=== PATIENT | female | born 1960 | race Caucasian/White ===

== ENCOUNTER → 2025-02-03 11:01 | Outpatient (REF) | payer MEDICARE, OTHER, SELFPAY | LOC: HWRAD 11:01 | PROVIDERS: ATTENDING PHYSICIAN Family Medicine | DX: M25.50 Pain in unspecified joint (principal) | CPT/HCPCS: 73140 ==

== ENCOUNTER 2025-05-10 13:02 | Emergency (ER) | payer MEDICARE, OTHER, SELFPAY ==
[2025-05-10 13:03] VITALS: BMI 37.3
[2025-05-10 13:05] VITALS: BP 139/85
--- NOTE | 2025-05-10 14:24 | ED.GENMED ---
History of Present Illness
General
Chief Complaint: Abdominal Symptoms
Source: patient and spouse
Exam Limitations: none
Time Seen by Provider: 05/10/25 14:12
Nursing documentation reviewed up to this point in time: agreed with
History of Present Illness
History of Present Illness:
Note:
CHIEF COMPLAINT(S)
Abdominal pain
HISTORY OF PRESENT ILLNESS
The patient is a 64-year-old female presenting with a chief complaint of abdominal pain localized to RUQ without radiating to the shoulder or groin. She mentioned that the pain varies daily. A few days ago, she initially thought the discomfort was
due to constipation and refrained from eating as a result. She reported waking up with sweating episodes, indicating possible fever, though she was unsure. She experienced heightened pain yesterday, resulting in significant discomfort and difficulty
sleeping. The patient stated, 'Theres been so much pain,' prompting her to take hydrocodone left over from a prior knee replacement, which provided some relief. She is experiencing significant nausea but has not vomited.
The patient disclosed a history of gallstones confirmed by a computed tomography (CT) scan a few years ago. At the time, the scan was performed due to a fall that resulted in back pain, during which gallstones were identified. She described feeling
a palpable 'hard block' in the abdominal region but denied any dysuria or hematuria.
PAST MEDICAL AND SURIGICAL HISTORY
The patient has a history of gallstones. Past surgical history includes a knee replacement, section, and hysterectomy.
PLAN
1. Order laboratory tests, including liver function tests, complete blood count, and kidney function tests.
2. Obtain a urine sample for analysis.
3. Perform an abdominal ultrasound to evaluate the gallbladder; consider a CT scan if the ultrasound findings are inconclusive.
4. Administer intravenous fluids due to limited oral intake.
5. Provide ondansetron (Zofran) intravenously for nausea management.
6. Monitor pain and symptom progression.
DIFFERENTIAL DIAGNOSIS
The Differential Diagnosis includes, in no particular order and is not limited to:
1. Cholecystitis
2. Biliary colic
3. Acute gastroenteritis
4. Peptic ulcer disease
5. Pancreatitis
6. Constipation
7. Urinary tract infection
8. Diverticulitis
9. Small bowel obstruction
10. Hepatic abscess
CARE-UPDATE
05/10/25 - 20:[address] pelvis confirm the presence of gallstones without indications of polypsisitis or other abdominal abnormalities. Laboratory results indicate mild leukocytosis with normal lipase and liver function tests. The patient is stable and
approved for discharge with instructions to follow up with general surgery. Discharge precautions have been provided.
Disposition:
SUMMARY OF ENCOUNTER
The patient, a 64-year-old female, presented with right upper quadrant abdominal pain and nausea. The pain varied daily and was accompanied by sweating episodes, suggesting fever. The patient has a history of gallstones confirmed by imaging in the
past. In the emergency department, laboratory tests showed mild leukocytosis but normal lipase and liver function tests. Imaging confirmed gallstones with no other abdominal abnormalities. Intravenous fluids and ondansetron (Zofran) were provided
for nausea and hydration.
DISPOSITION
Discharge.
ASSESSMENT
The patients symptoms and imaging studies are consistent with biliary colic, as suggested by the presentation of gallstones without acute inflammatory changes.
EMERGENCY TREATMENTS ADMINISTERED
Ondansetron (Zofran) was administered intravenously for nausea. Intravenous fluids were also provided due to limited oral intake.
PLAN
The patient is advised to follow up with general surgery for further evaluation and management of gallstones. Discharge precautions include instructions to return to the emergency department if symptoms worsen or new symptoms develop.
INDEPENDENT REVIEW OF LABS AND INTERPRETATION OF TESTS
My independent review of CBC indicates mild leukocytosis. My independent interpretation of the abdominal ultrasound and CT pelvis confirms the presence of gallstones with no other acute abdominal abnormalities.
PATIENT EDUCATION AND COUNSELING
The patient was educated regarding the diagnosis of biliary colic and the importance of follow-up with general surgery. Return precautions were discussed, advising the patient to return to the emergency department if symptoms worsen.
FOLLOW-UP INSTRUCTIONS
The patient is instructed to follow up with general surgery for further evaluation.
MEDICATION RECONCILIATION
Ondansetron (Zofran) was administered intravenously in the emergency department.
MEDICAL DECISION MAKING
-Number and Complexity of Problems Addressed:
Chronic conditions affecting care include a history of gallstones.
Data:
Category 1
Laboratory tests ordered included liver function tests, complete blood count, and kidney function tests. Imaging studies included an abdominal ultrasound and CT pelvis.
Category 3
Discussion regarding the management plan involved follow-up with general surgery for potential surgical intervention for gallstones.
-Risk:
Consideration of Admission/Observation: Escalation of care including admission/observation was considered given the complexity and risk of the patients presenting complaint, exam findings, and/or their underlying comorbidities. However, ultimately,
I feel the patient is safe for outpatient management with close follow-up. Reasoning: Work-up reassuring, does not reveal any acute life/organ-threatening processes, patients symptoms well controlled upon reevaluation, reexamination is reassuring,
vitals are stable, patient agreeable with discharge, reliable for follow-up.
DIAGNOSIS
Biliary colic (ICD-10 K80.00)
Past History
Past History
ED Past Medical History: HTN
Social History
Tobacco: Non-smoker
Alcohol: None
Drug: None
Personal:
Living: with family
Phy Exam
Physical Exam
Physical Exam:
Physical Exam
General: no apparent distress, not acutely ill
Neck: supple. no meningeal signs. normal posterior pharynx
Heart: s1/s2 regular rate and rhythm, no murmur. equal radial
pulses.
HEENT: Pupils equal round reactive to light, EOMI
Lungs: no acute respiratory distress. clear bilaterally
Abdomen: normal bowel sounds. Right upper quadrant tenderness. No CVAT
Neuro: alert and oriented. no focal neurological deficits cranial nerves II through XII intact
Skin: no rash
Psychiatric: well kept. interactive and cooperative
Extremities: no edema. no calf tenderness. negative homans. good distal pulses
Course
Orders/Labs/Results
Orders:
Orders
05/10/25 14:13
IV Insert/Care/Rem.- Treatment PRN
05/10/25 14:24
US Abdomen Complete/Upper Urgent
Comment:
Reason For Exam: epigastric/RUQ pain 2 days
05/10/25 14:33
Complete Blood Count/With Diff Urgent
Comprehensive Metabolic Panel Urgent
Lipase Urgent
Urinalysis Reflex To Culture Urgent
Date Specimen was Collected: 05/10/25
Time Specimen was Collected: 14:28
Urine Microscopic Reflex Cult Urgent
Urine Culture Urgent
MIKO Source: U
Specimen Description:
Date Specimen was Collected: 05/10/25
Time Specimen was Collected: 14:28
05/10/25 16:05
CT Abd/pelvis W Iv Cont Urgent
Comment:
Reason For Exam: right side abd pain 2 days
05/10/25 18:47
0.9% Sodium Chloride 1000 ml [Nss] 1,000 ml IV BOLUS
Ondansetron Injectable [Zofran] 4 mg IV NOW STA
Abnormal Lab Results
05/10/25
14:33
WBC 12.7 H 10^3/uL
(4.8-10.8)
RBC 4.18 L 10^6/uL
(4.20-5.40)
Hct 36.7 L %
(37.0-47.0)
Abs Immat Gran (auto) 0.1 H 10^3/uL
(0-0.05)
Absolute Neuts (auto) 9.6 H 10^3/uL
(1.4-6.5)
Absolute Monos (auto) 0.9 H 10^3/uL
(0.1-0.6)
Neutrophils % 75.5 H %
(42.2-75.2)
Lymphocytes % 14.8 L %
(20.5-51.1)
BUN 18 H mg/dl
(7-17)
Creatinine 0.5 L mg/dL
(0.6-1.0)
Glucose 113 H mg/dl
(70-99)
Alkaline Phosphatase 139 H U/L
(38-126)
Leukocyte Esterase Rfl 1+ A
(Negative)
Urine Bacteria (Reflex) Moderate A
(Negative)
Urine Albumin (Reflex) 1+ A
(Neg - Trace)
05/10/25 14:33
05/10/25 14:33
Vital Signs
Initial and Last Documented VS:
Initial Vital Signs
Temp Pulse Resp BP Pulse Ox
98.4 F 73 16 139/85 98
05/10/25 13:05 05/10/25 13:05 05/10/25 13:05 05/10/25 13:05 05/10/25 13:05
Last Documented Vital Signs
Temp Pulse Resp BP Pulse Ox
98.8 F 60 16 125/60 99
05/10/25 19:19 05/10/25 19:19 05/10/25 19:19 05/10/25 19:17 05/10/25 19:19
*Pulse Oximetry
SaO2: 98
Oxygen Mode of Delivery: Room air
Patient hypoxic: no
*Critical Care Note
Total Time (30-74mins, 75-104mins- exclusive of procedures): Not Applicable
ED Attending Note
-
Portions of this chart may have been created with voice recognition software.� Occasional wrong word or��sound alike� substitutions may have occurred due to the inherent limitations of voice recognition software.
Discharge Plan
Departure
Patient Disposition: Home (Routine Discharge)
Date of Disposition: 05/10/25
Time of Disposition: 20:43
Patient with high blood pressure during this ER visit?: Yes
Condition: Good
Discharge Problem:
Biliary colic
Instructions: Gallstones - ED discharge instructions, Abdominal Pain, BLOOD PRESSURE
Referrals:
Ravi Smith MD [Active, Surgical] - Call in 1-3 days for appt
Fernando Mena MD [Family Provider, Family Practice]
Interventions
Interventions:
*Risk Screen - Suicide Last Done: 05/10/25 13:05
*General Assessment Last Done: 05/10/25 15:03
*Neglect/Abuse Screening Last Done: 05/10/25 13:05
*ED- Fall Risk Assessment Last Done: 05/10/25 15:03
*Nursing Disposition Last Done: 05/10/25 20:53
YM-Ddhjcp-Bsllrfeypl Assessment Last Done: 05/10/25 15:03
Discharge Date and Time
Print Language: PASHTO
[2025-05-10 14:38] VITALS: BP 133/64
[2025-05-10 14:46] LABS: Hematocrit 36.7 % (37.0-47.0); Hemoglobin 12.2 g/dL (12.0-16.0); Mean Corp Hgb Conc. 33.2 g/dL (33.0-37.0); Mean Corpuscular Volume 87.8 fL (81.0-99.0); Nucleated Red Blood Cells % 0 %; Platelet Count 239 10^3/uL (130-400); Red Cell Dist. Width 13.3 % (11.5-14.5)
[2025-05-10 14:52] LABS: Urine Character Clear (Clear)
[2025-05-10 15:03] VITALS: BP 134/78
[2025-05-10 15:32] LABS: ALT (SGPT) 34 U/L (0-35); AST (SGOT) 29 U/L (14-36); Albumin 4.5 g/dl (3.5-5.0); Alkaline Phosphatase 139 U/L (38-126); Blood Urea Nitrogen 18 mg/dl (7-17); Calcium 9.5 mg/dl (8.4-10.2); Carbon Dioxide 28 mmol/L (22-30); Chloride 99 mmol/L (98-107); Estimated Creatinine Clearance 117 ml/min; Glucose 113 mg/dl (70-99); Lipase 70 U/L (23-300); Potassium 3.5 mmol/L (3.5-5.1); Sodium 136 mmol/L (135-145); Total Protein 7.6 g/dl (6.3-8.2); eGFR > 60.00
[2025-05-10 15:34] LABS: Urine Red Blood Cell 0-2 /HPF (0-2); Urine Urothelial Cell 0-2 /LPF (FEW)
[2025-05-10] MEDS: ZOFRAN 4 MG IV (18:57)
[2025-05-10] MEDS: NSS 1000 IV (18:57)
[2025-05-10 19:17] VITALS: BP 125/60
== END 2025-05-10 20:54 | disposition home or self-care (01) ==
LOC: EMR 13:02
PROVIDERS: EMERGENCY PHYSICIAN Emergency Medicine; FAMILY PHYSICIAN Family Medicine
DX: K80.20 Calculus of gallbladder without cholecystitis without obstruction (principal); D72.829 Elevated white blood cell count, unspecified; I10 Essential (primary) hypertension; Z96.659 Presence of unspecified artificial knee joint
CPT/HCPCS: 99284; 96374; 96361; 74177; 76700; 80053; 81003; 81015; 83690; 85025; 87086; Q9967

== ENCOUNTER → 2025-07-14 09:56 | Outpatient (REF) | payer MEDICARE, OTHER, SELFPAY ==
[2025-07-14 11:02] LABS: Hematocrit 37.0 % (37.0-47.0); Hemoglobin 12.5 g/dL (12.0-16.0); Mean Corp Hgb Conc. 33.8 g/dL (33.0-37.0); Mean Corpuscular Volume 86.7 fL (81.0-99.0); Platelet Count 201 10^3/uL (130-400); Red Cell Dist. Width 13.5 % (11.5-14.5)
[2025-07-14 11:29] LABS: ALT (SGPT) 28 U/L (0-35); AST (SGOT) 28 U/L (14-36); Albumin 4.3 g/dl (3.5-5.0); Alkaline Phosphatase 92 U/L (38-126); Blood Urea Nitrogen 26 mg/dl (7-17); Calcium 9.5 mg/dl (8.4-10.2); Carbon Dioxide 31 mmol/L (22-30); Chloride 102 mmol/L (98-107); Glucose 100 mg/dl (70-99); Potassium 3.5 mmol/L (3.5-5.1); Sodium 141 mmol/L (135-145); Total Protein 7.0 g/dl (6.3-8.2); eGFR > 60.00
== END ==
LOC: SDSPAT 09:56
PROVIDERS: ATTENDING PHYSICIAN Surgery; FAMILY PHYSICIAN Family Medicine
DX: Z01.818 Encounter for other preprocedural examination (principal)
CPT/HCPCS: 36415; 80053; 85027; 93005

== ENCOUNTER 2025-07-24 06:16 | Day surgery (SDC) | payer MEDICARE, OTHER, SELFPAY ==
[2025-07-14 14:09] VITALS: BMI 38.1
[2025-07-24] VITALS (10 sets, daily range): BP systolic 107–142; BP diastolic 55–83; BMI 38.1
[2025-07-24] MEDS: TRANSDERM-SCOP 1 PATCH TRANSDERM (12:14)
[2025-07-24] MEDS: NORMOSOL-R/PLASMALYTE-A 1000 IV (12:27)
== END 2025-07-24 18:11 | disposition home or self-care (01) ==
LOC: SDS 06:16
PROVIDERS: ATTENDING PHYSICIAN Surgery
DX: K80.10 Calculus of gallbladder with chronic cholecystitis without obstruction (principal); K76.0 Fatty (change of) liver, not elsewhere classified; E66.01 Morbid (severe) obesity due to excess calories
CPT/HCPCS: 47563; 74300; 76000; 88304